=== PATIENT | male | born 1985 | race Caucasian/White ===

== ENCOUNTER → 2016-11-21 | Outpatient (CLI) | payer OTHER ==
--- NOTE | 2016-11-21 17:05 | DIREP ---
PROCEDURE:XRAY KNEE 2 VWS-RT COMPARISON:None. INDICATIONS:KNEE PAIN FINDINGS: BONES:Normal. JOINTS:Normal. SOFT TISSUES:Normal. OTHER:No additional findings. CONCLUSION:Normal examination. Dictated by: Sterling Nayak MD on 11/21/2016 at 05:03 PM
--- NOTE | 2016-11-21 17:28 | DIREP ---
PROCEDURE:XRAY KNEE 2 VWS-LT COMPARISON:None. INDICATIONS:KNEE PAIN FINDINGS: BONES:Normal. JOINTS:Normal. SOFT TISSUES:Normal. OTHER:No additional findings. CONCLUSION:Normal examination. Dictated by: Sterling Nayak MD on 11/21/2016 at 05:15 PM
--- NOTE | 2016-11-21 17:46 | DIREP ---
PROCEDURE:XRAY SPINE LUMBAR 2-3 VWS COMPARISON:None. INDICATIONS:BACK PAIN LUMBAGO FINDINGS: ALIGNMENT:No significant scoliosis. Normal lumbar lordosis. Vertebral body alignment is maintained. VERTEBRAE:No compression deformity or acute fracture. DISK SPACES:Disc spaces appear relatively preserved. Suspect mild facet arthropathy of the lower lumbar spine. SPONDYLOLISTHESIS:None. SACROILIAC JOINTS:Normal. CONCLUSION: 1. No acute osseous abnormality or vertebral body malalignment. 2. Suspect mild facet arthropathy of the lower lumbar spine with relative preservation of the disc spaces. Dictated by: Enrique Ramirez M.D. On 11/21/2016 at 05:43 PM
== END | disposition home or self-care (01) ==
LOC: RAD 11:20
PROVIDERS: ATTEND Nurse Practitioner Family
DX: M25.561 Pain in right knee (principal); M25.562 Pain in left knee; M54.5 Low back pain
CPT/HCPCS: 72100; 73560